=== PATIENT | male | born 2000 | race Two or more races ===

== ENCOUNTER 2023-12-14 23:20 | Emergency (ER) | payer MEDICAID, OTHER ==
[~2023-12-14] VITALS: Ht 188 cm; Wt 100.0 kg
[2023-12-15] MEDS ORDERED: IBUP-1456 PO (04:39)
[2023-12-15] MEDS: KETOROLAC TROMETH 60MG/2ML VIAL IM ONE (05:23)
[2023-12-15 06:23] VITALS: BP 129/76; PULSE 72; RESP 18; TEMP 98.1; O2SAT 98
== END 2023-12-15 06:23 | disposition home or self-care (01) ==
LOC: ER 23:20
DX: S83.91XA Sprain of unspecified site of right knee, initial encounter (principal); Z79.1 Long term (current) use of non-steroidal anti-inflammatories (NSAID); Z79.2 Long term (current) use of antibiotics; X50.1XXA Overexertion from prolonged static or awkward postures, initial encounter; Y93.89 Activity, other specified; Y92.89 Other specified places as the place of occurrence of the external cause; Y99.8 Other external cause status
CPT/HCPCS: 29505; 73562; 96372; 99283; J1885

== ENCOUNTER 2023-12-16 22:40 | Emergency (ER) | payer MEDICAID ==
[~2023-12-16 22:40] MED LIST: IBUP-1456 PO
== END 2023-12-17 01:13 | disposition left against medical advice (07) ==
LOC: ER 22:40
DX: K59.00 Constipation, unspecified (principal); Z53.21 Procedure and treatment not carried out due to patient leaving prior to being seen by health care provider